=== PATIENT | female | born 1995 | race African-American/Black ===

== ENCOUNTER 2023-10-17 11:27 | Emergency (ER) | payer OTHER, SELFPAY ==
--- NOTE | 2023-10-17 11:30 | ED.FEMALEGU ---
HPI - Female Genitourinary General Chief complaint: Urogenital-Female Stated complaint: UTI Time Seen by Provider: 10/17/23 11:50 Source: patient and RN notes reviewed Mode of arrival: ambulatory Limitations: no limitations History of Present Illness HPI Narrative: 27-year-old female presents with concern for possible urinary tract infection or STD. She reports she has had some swollen lymph nodes in her right groin, she also has some swelling of her right labia. She reports it is tender. She denies dysuria, frequency, urgency. She reports some normal vaginal discharge, denies foul-smelling vaginal discharge. She reports she generally has not been feeling well but has not had a fever. She denies any known exposure to STDs of would like to be tested. She denies back pain or abdominal pain, nausea vomiting MD elicited complaint: UTI Related Data Allergies Allergy/AdvReac Type Severity Reaction Status Date / Time No Known Allergies Allergy Mild Verified 10/17/23 11:28 Review of Systems Review of Systems: CONSTITUTIONAL: Denies malaise, chills, sweats, or fever. CARDIOVASCULAR: Denies chest pain, palpitations, or edema. RESPIRATORY: Denies cough or dyspnea. GASTROINTESTINAL: Denies abdominal pain, nausea, vomiting, diarrhea GENITOURINARY: Denies dysuria, frequency, urgency, suprapubic pressure. Denies flank pain or hematuria. SKIN: Reports swollen lymph nodes in the right groin, right labial swelling and tenderness MUSCULOSKELETAL: Denies back pain or myalgia. All systems reviewed & are unremarkable except as noted in HPI and below PMFSH Comments At time of signature, agree with nursing past medical, surgical, social and family history. There is no relevant family history pertinent to the presenting complaint Exam Narrative: GENERAL: Well-appearing, well-nourished, and in no acute distress. HEAD: Normocephalic. EYES: PERRLA, conjunctivae clear. NECK: Supple. No lymphadenopathy CHEST: Clear to auscultation. No respiratory distress. HEART: Regular rate and rhythm. ABDOMEN: Soft, nontender upon palpation, nondistended, normal active bowel sounds, no palpable or pulsatile masses, no guarding. No CVA tenderness SKIN: Warm, dry. Induration, mild edema and tenderness noted to the right labia and swollen lymph nodes noted in the right groin NEURO: Alert and oriented x3. PSYCH: Normal mood and affect Course Course Emergency Course: Patient is aware of diagnosis, understands and agrees to treatment plan. Anticipatory guidance given. Patient agrees to follow-up as directed and is aware of reasons to seek care at the emergency department. Portions of this record may have been created with voice recognition software Level of Care: Express Care Visit Vital Signs Vital signs: Reviewed. MDM - Female Genitourinary MDM Narrative Medical decision making narrative: Exam findings and UA show no acute concerns or changes; patient is non-toxic appearing and is in no distress. Patient is appropriate for outpatient treatment and follow-up. Differential Diagnosis Differential diagnosis: Likely urinary tract infection and cystitis Critical Care Time Critical Care Time Critical Care Time: No Discharge Plan Discharge Clinical Impression: Cellulitis Patient Disposition: Home, Self-Care Condition: Stable Instructions: Antibiotic Form, Cellulitis (ED) Additional Instructions: Please follow up with your Primary Care Doctor within 48-72 hours - call for an appointment. Rest and elevate affected area; apply moist heat 3-4 times daily for 10-15 minutes. Take Motrin 600mg every 8 hours with food for pain. Please take Antibiotics as directed. If you experience any worsening redness, swelling, streaking (red lines), fever or chills please go to the ER You have been tested for potential gonorrhea, chlamydia, and trichomoniasis today. You will receive a phone call in 2-3 days with the results of today's testing, any nec
[2023-10-17 11:40] VITALS: BP 147/93; PULSE 124; RESP 16; TEMP 37.4; O2SAT 100
[2023-10-17 11:52] LABS: EDUAAPPEAR Clear; EDUABILI Negative; EDUABLOOD Negative; EDUACOLOR1 Yellow; EDUAGLUCOSE Negative; EDUAKETONE Negative; EDUALEUKO Negative; EDUANITRATE Negative; EDUAPROTEIN Negative; EDUAUROBILI 0.2
[2023-10-17 19:56] LABS: Trichomonas Vag PCR NOT DETECTED (NOT DETECTE)
[2023-10-17 20:18] LABS: Chlamydia trachomatis NOT DETECTED (NOT DETECTE); Neisseria gonorrhoeae PCR NOT DETECTED (NOT DETECTE)
== END 2023-10-17 12:04 | disposition home or self-care (01) ==
PROVIDERS: Emergency Provider Nurse Practitioner; PCP Family Medicine
DX: N76.2 Acute vulvitis (principal)
CPT/HCPCS: 81003; 87491; 87591; 87661; 99204; G0463

== ENCOUNTER 2023-11-08 11:47 | Emergency (ER) | payer OTHER, SELFPAY ==
--- NOTE | ~2023-11-08 | XR_ITS ---
XR chest 2V Ordering provider: Mahsa Mays APRN History: 27 years Female with . cough and congested x 8 days . Comparison: None. FINDINGS: MEDIASTINUM: The cardiac silhouette is not enlarged. LUNGS: No infiltrates, effusions or pneumothorax. Prominent markings in the lower lobes medially. OTHER: No free air under the diaphragm. IMPRESSION: Prominent markings in the lower lobes which may indicate bronchiolitis. Clinical correlation and foll ow-up advised. Reviewed, dictated and finalized at location A. IMPRESSION: Prominent markings in the lower lobes which may indicate bronchiolitis. Clinica l correlation and follow-up advised.
--- NOTE | 2023-11-08 11:50 | ED.URI ---
HPI - URI/Sore Throat General Chief Complaint: Upper Respiratory Infection Stated Complaint: ears blocked,congested Time Seen by Provider: 11/08/23 11:57 Source: patient, RN notes reviewed and old records reviewed Mode of arrival: ambulatory Limitations: no limitations History of Present Illness HPI Narrative: 27-year-old female presents to the [facility] with complaints of clogged ears and congestion for 1 week. Has been taking Tylenol Severe cold and Sinus Onset (ago): week(s) (1) Treatments prior to arrival: cold medicine Related Data Allergies Allergy/AdvReac Type Severity Reaction Status Date / Time No Known Allergies Allergy Mild Verified 11/08/23 11:52 Review of Systems Review of Systems: All systems reviewed & are unremarkable except as noted in HPI and below Constitutional: Constitutional: Reports no additional constitutional complaints Eyes: Eyes: Reports no additional eye complaints ENT: Reports as per HPI Cardiovascular: Cardiovascular: Reports no additional cardiovascular complaints, Denies chest pain and Denies dyspnea Respiratory: Respiratory: Reports as per HPI, Denies chest congestion, Reports cough and Denies dyspnea Gastrointestinal: Gastrointestinal: Reports no additional gastrointestinal complaints, Denies abdominal pain, Denies nausea and Denies vomiting Musculoskeletal: Musculoskeletal: Reports no additional musculoskeletal complaints Integumentary/Breasts: Skin/Breast: Reports system reviewed and no additional complaints, except as docu Neurologic: Reports system reviewed and no additional complaints, except as documented Psychiatric: Psychiatric: Reports no additional psychiatric complaints Allergic/Immunologic: Allergic/Immunologic: Reports no additional allergic/immunologic complaints PMFSH Comments At the time of my signature, I reviewed and agree with the nursing past medical, surgical, social, and family history. There is no relevant family history pertinent to the patient complaint. Exam Const: General: cooperative, healthy appearing, comfortable, no acute distress, well developed, alert and well nourished Nutritional Appearance: well nourished and obese Orientation/consciousness: patient oriented x3 Limitations: no limitations HENMT: Head: normal to inspection Ears: hearing grossly normal bilaterally, external ears normal, EAC's normal and TM abnormal bulging on the right, erythematous on the right and with fluid behind the TM on the left Face/Nose/Sinus: Normal external nose present, Normal nares present, Normal nasal mucous membranes and turbinates present, normal facial exam and face symmetric Face and sinus: normal facial exam and face symmetric Mouth: Yes Normal oral and palatal mucosa present, Yes lip normal and Yes tongue normal Throat: posterior oropharynx normal, uvula midline and no uvular edema Eyes: General: appearance normal, both eyes and all related structures Alignment and Position: alignment normal Periorbital: periorbital findings normal Pupils: Equal, round and reactive pupils present EOM: EOMs intact bilaterally Neck: Neck: normal visual inspection, full ROM, no lymphadenopathy and no meningeal signs Chest: Chest palpation & inspection: normal inspection of the chest Resp: Effort & Inspection: normal respiratory effort and able to speak in complete sentences Auscultation: no crackles, no rales, no rhonchi and wheezes expiratory wheezes Cardio: Rate: regular rate Rhythm: regular rhythm Skin: General skin exam: normal color and no rashes or lesions noted Lesions: no lesions Rashes: no rashes Trauma: no lacerations or abrasions Wounds: no wounds Neuro: General: patient oriented x3, gait normal, tone normal, moves all extremities and no meningeal signs Cranial nerves: Yes Equal, round and reactive pupils present Cognition (Neuro): normal cognition Speech: normal speech Gait exam (Neuro): Normal gait present Extrem: General: normal to inspection, f
[2023-11-08 11:57] VITALS: BP 136/90; PULSE 92; RESP 16; TEMP 36.7; O2SAT 99
== END 2023-11-08 12:36 | disposition home or self-care (01) ==
PROVIDERS: Emergency Provider Nurse Practitioner; PCP Family Medicine
DX: H66.91 Otitis media, unspecified, right ear (principal); J40 Bronchitis, not specified as acute or chronic
CPT/HCPCS: 71046; 99213; G0463